=== PATIENT | male | born 1980 | race Caucasian/White ===

== ENCOUNTER → 2020-08-14 14:33 | Outpatient (BNVA) | payer SELFPAY | PROVIDERS: Visit Provider Physician Assistant | DX: Z02.79 Encounter for issue of other medical certificate (principal) ==

== ENCOUNTER 2022-06-03 12:27 | Outpatient (REF) | payer OTHER, SELFPAY ==
[2022-06-03 14:09] LABS: Folate 14.1 ng/mL (> or = 4.0); Vitamin B12 372 pg/mL (200-900)
[2022-06-05 08:30] LABS: Lyme Abs Screen <0.90 index
== END 2022-06-03 12:28 | disposition home or self-care (01) ==
LOC: HO.LAB 12:27
PROVIDERS: PCP Internal Medicine; Visit Provider Psychiatry & Neurology Neurology
DX: G31.84 Mild cognitive impairment of uncertain or unknown etiology (principal)
CPT/HCPCS: 36415; 82607; 82746; 86617; 86618

== ENCOUNTER → 2022-08-17 13:40 | Outpatient (BNVA) | payer SELFPAY | PROVIDERS: PCP Internal Medicine; Visit Provider Physician Assistant Medical | DX: Z02.79 Encounter for issue of other medical certificate (principal) ==

== ENCOUNTER → 2023-08-16 07:49 | Outpatient (BNVA) | payer SELFPAY | PROVIDERS: PCP Internal Medicine; Visit Provider Physician Assistant Medical | DX: Z02.79 Encounter for issue of other medical certificate (principal) ==